=== PATIENT | female | born 1975 | race Two or more races ===

== ENCOUNTER 2018-05-03 02:52 | Emergency (ER) | payer SELFPAY ==
[~2018-05-03] VITALS: Ht 157.5 cm; Wt 66.2 kg
[2018-05-03 03:15] VITALS: BP 122/78
[2018-05-03 05:07] LABS: Urine Bacteria FEW /hpf (None Seen); Urine Blood 3+ /uL (Negative); Urine Specific Gravity 1.002 (1.001-1.035); Urine WBC 5 /hpf (0 - 5)
== END 2018-05-03 08:08 | disposition home or self-care (01) ==
LOC: ER 02:53
DX: N39.0 Urinary tract infection, site not specified (principal); Z98.51 Tubal ligation status
CPT/HCPCS: 81001; 87086

== ENCOUNTER 2022-10-07 09:29 | Emergency (ER) | payer MEDICAID, OTHER ==
[~2022-10-07] VITALS: Ht 157.5 cm; Wt 70.0 kg
[2022-10-07 10:24] LABS: Basophils # (auto) 0.1 10 ^3/uL (0-0.2); Eosinophils # (auto) 0.2 10 ^3/uL (0-0.8); Hemoglobin 13.5 g/dL (12.2-16.2); Lymphocytes # (auto) 1.7 10 ^3/uL (0.4-5.4); Monocytes # (auto) 0.4 10 ^3/uL (0-1.3); Neutrophils # (auto) 3.1 10 ^3/uL (1.6-8.6); Nucleated Red Blood Cells % 0.1 %
[2022-10-07 10:28] LABS: Basophils % (auto) 1.2 % (0.0-2.0); Eosinophils % (auto) 3.9 % (0.0-7.0); Hematocrit 40.4 % (36.0-46.0); Lymphocytes % (auto) 31.5 % (10.0-50.0); Mean Corpuscular Hgb Conc. 33.4 g/dL (32.0-36.0); Mean Corpuscular Volume 77.7 fL (80.0-100.0); Monocytes % (auto) 7.3 % (0.0-12.0); Neutrophils % (auto) 56.1 % (37.0-80.0); Red Blood Cells 5.19 10^6/uL (4.0-5.20); White Blood Cell 5.5 10^3/uL (4.4-10.8)
[2022-10-07 10:34] LABS: Albumin 3.8 g/dL (3.4-5.0); Calcium 8.7 mg/dL (8.5-10.1); Magnesium 2.6 mg/dL (1.6-2.6); Potassium 4.1 mmol/L (3.5-5.1)
[2022-10-07 10:37] LABS: BUN/Creatinine Ratio 21.9 (10.0-20.0); Bilirubin, Total 0.4 mg/dL (0.2-1.0); INR 1.02 (0.9-1.15); Total Protein 6.7 g/dL (6.4-8.2)
[2022-10-07 10:54] LABS: Urine WBC None Seen /hpf (0 - 5)
[2022-10-07 11:02] LABS: Urine Bacteria NONE SEEN /hpf (None Seen); Urine Blood Negative /uL (Negative); Urine Specific Gravity 1.003 (1.001-1.035)
[2022-10-07] MEDS ORDERED: MECLIZINE HCL 25 MG TAB PO ONE (11:30)
[2022-10-07] MEDS ORDERED: LACTATED RINGER'S 2,000 ML IV ONE (12:00)
[2022-10-07] MEDS ORDERED: MECL25CH38 PO (13:58)
[2022-10-07 15:39] VITALS: BP 120/72
== END 2022-10-07 15:40 | disposition home or self-care (01) ==
LOC: ER 09:29
DX: R42 Dizziness and giddiness (principal); R53.1 Weakness; Z32.02 Encounter for pregnancy test, result negative; Z98.51 Tubal ligation status; Z79.01 Long term (current) use of anticoagulants
CPT/HCPCS: 36415; 71045; 80053; 81001; 81025; 82962; 83735; 84443; 84484; 85025; 85610; 85730; 93005; 99285; J8597

== ENCOUNTER 2023-11-11 11:14 | Emergency (ER) | payer MEDICAID ==
[~2023-11-11] VITALS: Ht 157.5 cm; Wt 70.9 kg
[~2023-11-11 11:14] MED LIST: MECL25CH38 PO
[2023-11-11 13:19] VITALS: BP 138/86; PULSE 88; RESP 18; TEMP 98.7; O2SAT 98
[2023-11-11] MEDS ORDERED: CEPH500C PO (14:05)
[2023-11-11] MEDS ORDERED: METR-344 PO (14:05)
[2023-11-11] MEDS ORDERED: IBUP-1456 PO (14:05)
== END 2023-11-11 14:10 | disposition home or self-care (01) ==
LOC: ER 11:14
DX: L04.0 Acute lymphadenitis of face, head and neck (principal); N76.0 Acute vaginitis; Z98.51 Tubal ligation status